=== PATIENT | female | born 1950 | race Caucasian/White ===

== ENCOUNTER → 2021-04-10 | Outpatient (CLI) | payer MEDICARE, OTHER ==
[~2021-04-10] MED LIST: COSAMIN DS CAP1 EACH PO; CRESTOR40 MG PO; LEVO-T50 MCG PO; NORVASC5 MG PO; OMEPRAZOLE40 MG PO; TOPROL XL25 MG PO; VITAMIN D325 MC1 PO
--- NOTE | 2021-04-10 11:23 | 2DMMODE ---
[id number] [id number] 2 D/M-MODE ECHOCARDIOGRAM Name: RAFAEL RUTHERFORDNando RING Room: [facility]#: [id number] Admission: 04/10/21 Attend Phys: James Dias, Discharge: Date of : 54 Date of Service: 04/10/21 1122 Report #: [id number] THIS REPORT FOR: cc: Susan Giraldo MD, Katrina MD Holkins, John M. MD [facility] ~ APPROVED REPORT Study performed: 04/10/2021 10:57:19 EXAM: Comprehensive 2D, Doppler, and color-flow Echocardiogram Patient Location: Out-Patient BSA: 1.98 HR: 72 bpm BP: 120/76 mmHg Other Information Study Quality: Good Indications Dyspnea 2D Dimensions IVSd: 11.58 (7-11mm) LVOT Diam: 19.86 (18-24mm) LVDd: 41.55 mm PWd: 10.26 (7-11mm) Ascending Ao: 25.46 (22-36mm) LVDs: 25.68 (25-40mm) Aortic Root: 29.14 mm Volumes Left Atrial Volume (Systole) LA ESV Index: 13.20 mL/m2 Aortic Valve AoV Peak Suraj.: 1.36 m/s AO Peak Gr.: 7.43 mmHg LVOT Max P.32 mmHg AO Mean Gr.: 3.98 mmHg LVOT Mean P.57 mmHg LVOT Max V: 0.91 m/s AO V2 VTI: 31.48 cm LVOT Mean V: 0.57 m/s CHRIS (VTI): 2.09 cm2 LVOT V1 VTI: 21.26 cm Mitral Valve E/A Ratio: 0.94 [id number] [id number] 2 D/M-MODE ECHOCARDIOGRAM Name: LUCI RUTHERFORD [id number] Admission: 04/10/21 Attend Phys: James Dias, Discharge: Date of : 54 Date of Service: 04/10/21 1122 Report #: [id number] MV Decel. Time: 215.48 ms MV E Max Suraj.: 0.66 m/s MV PHT: 62.49 ms MVA (PHT): 3.52 cm2 TDI E/Lateral E': 5.50 E/Medial E': 5.50 Medial E' Suraj.: 0.12 m/s Lateral E' Suraj.: 0.12 m/s Pulmonary Valve PV Peak Suraj.: 1.03 m/s PV Peak Gr.: 4.27 mmHg Tricuspid Valve RAP Estimate: 5.00 mmHg TR Peak Gr.: 19.90 mmHg RVSP: 24.90 mmHg PA Pressure: 24.90 mmHg Left Ventricle The left ventricle is normal size. There is normal LV segmental wall motion. There is normal left ventricular wall thickness. Left ventricular systolic function is normal. The left ventricular ejection fraction is within the normal range. LVEF is 55-60%. Right Ventricle The right ventricle is normal size. The right ventricular systolic function is normal. Atria The left atrium size is normal. The right atrium size is normal. Aortic Valve The aortic valve is normal in structure. No aortic regurgitation is present. There is no aortic valvular stenosis. Mitral Valve The mitral valve is normal in structure. Mild mitral regurgitation. No evidence of mitral valve stenosis. Tricuspid Valve The tricuspid valve is normal in structure. Mild tricuspid regurgitation. Pulmonic Valve The pulmonary valve is normal in structure. [id number] [id number] 2 D/M-MODE ECHOCARDIOGRAM Name: LUCI RUTHERFORD Room: [facility]#: [id number] Admission: 04/10/21 Attend Phys: James Dias, Discharge: Date of : 54 Date of Service: 04/10/21 1122 Report #: [id number] valvular regurgitation. Great Vessels The aortic root is normal in size. IVC is normal in size and collapses >50% with inspiration. Pericardium There is no pericardial effusion. <Conclusion> The left ventricle is normal size. There is normal left ventricular wall thickness. Left ventricular systolic function is normal. The left ventricular ejection fraction is within the normal range. LVEF is 55-60%. The right ventricle is normal size. The left atrium size is normal. The right atrium size is normal. The aortic valve is normal in structure. The mitral valve is normal in structure. Mild mitral regurgitation. The tricuspid valve is normal in structure. Mild tricuspid regurgitation. IVC is normal in size and collapses >50% with inspiration. There is no pericardial effusion. There is normal LV segmental wall motion. <ELECTRONICALLY SIGNED> By: Oscar Fisher MD, FACC 04/10/21 1122 112 112 Oscar Fisher MD, FACC /INF
== END ==
LOC: M.CRD 09:48
PROVIDERS: ATTEND Internal Medicine Cardiovascular Disease
DX: I08.1 Rheumatic disorders of both mitral and tricuspid valves (principal); I10 Essential (primary) hypertension